=== PATIENT | female | born 1960 | race Caucasian/White ===

== ENCOUNTER 2016-06-04 11:16 | Emergency (ER) | payer BC ==
--- NOTE | ~2016-06-04 | CT71 ---
[facility] A Service of [facility] / [facility] RADIOLOGY TEXT RESULTS PATIENT: CELESTE LOVELL LOCATION: SED : 58 UNIT #: [id number] AGE: [address]: RICK REGAN SEX: F ORDER DR: [id number] [place] [id number] MR#: [id number] Acc #: [id number] NAME: CELESTE LOVELL : 1960 SEX: F STUDY DATE/TIME: 06/04/2016 10:51 UNIT: SED ROOM: STUDY DESCRIPTION: CT Head Wo Contrast Attending Physician: Rick Regan Referring Physician: Rick Regan Ordering Physician: Oniel Richards M.D. Primary Care Physician: Ange Durham MEDICAL IMAGING REPORT This report is preliminary unless electronic signature is present. EXAM CT of the head without contrast INDICATION Dizziness and headache for 3 days. This is located on the right side. Patient also has hyperglycemia. TECHNIQUE Axial CT images were obtained from the vertex of the skull through the skull base. No intravenous contrast was administered. This CT exam was performed with one or more of the following radiation dose reduction techniques: automatic exposure control, adjustment of mA and/or kV according to patient size, and iterative reconstruction. FINDINGS No acute intracranial hemorrhage is identified. Brain parenchyma is normal in attenuation with no focal areas of decreased attenuation seen. There is no midline shift or mass effect. The ventricles are normal in size. Patient is noted have a mucous retention cyst within the left maxillary sinus. The remainder of the visualized paranasal sinuses and mastoid air cells appear clear. No aggressive osseous abnormalities are seen and there are no focal soft tissue abnormalities. IMPRESSION 1. No acute intracranial process is identified. Specifically, there is no evidence of acute hemorrhage, mass lesion or acute infarct. 2. Left maxillary sinus mucous retention cyst Dictated by... Madyson Peña M.D. [facility] A Service of [facility] / [facility] RADIOLOGY TEXT RESULTS PATIENT: CELESTE LOVELL LOCATION: SED : 58 UNIT #: [id number] AGE: [address]: RICK REGAN SEX: F ORDER DR: THIS IS AN ELECTRONICALLY VERIFIED REPORT Madyson Peña M.D. at 06/04/2016 6:30 PM DAT/alexander TD: 06/04/2016 13:04 JOB #: [id number] MEDICAL IMAGING REPORT Page 1 of 1
--- NOTE | ~2016-06-04 | EKG ---
PATIENT: CELESTE LOVELL UNIT #: [id number] Ventricular Rate: 79 BPM Atrial Rate: 79 BPM P-R Interval: 146 ms QRS Duration: 88 ms Q-T Interval: 400 ms QTC Calculation(Bezet): 458 ms P [place]: 38 degrees Calculated R [place]: 20 degrees Calculated T [place]: 26 degrees Diagnosis Line: Normal sinus rhythm Diagnosis Line: Normal ECG Diagnosis Line: No previous ECGs available Diagnosis Line: Confirmed by JIMMY WHITMAN MD ([id number]) on 06/10/2016 Diagnosis Line: 7:59:04 PM INTERPRETING MD: ANTONETTE CASAS
[2016-06-04 10:59] LABS: URINE SOURCE CLEAN CATCH
[2016-06-04 11:04] LABS: URINE APPEARANCE CLEAR; URINE BILIRUBIN NEG (NEG); URINE BLOOD TRACE-INTACT (NEG); URINE COLOR YELLOW; URINE GLUCOSE 50 MG/DL (NORM); URINE KETONE NEG (NEG); URINE LEUKOCYTE ESTERASE NEG (NEG); URINE NITRATE NEG (NEG); URINE PROTEIN NEG (NEG); URINE UROBILINOGEN 0.2 MG/DL (NORM)
[2016-06-04 11:06] LABS: MICRO INDICATED? YES
[2016-06-04 11:06] LABS: POC - CKMB 2.5 ng/mL (0.0-7.9); POC - TROPONIN <0.05 ng/mL (<=0.05)
[2016-06-04 11:08] LABS: HEMOGLOBIN 13.3 gm/dL (12.0-16.0); MEAN PLATELET VOLUME 9.5 FL (6.5-11.5); MONOCYTE# 0.6 X10e3 (0-1.0); WHITE BLOOD COUNT 8.6 X10e3 (4.0-10.5)
[~2016-06-04 11:16] MED LIST: ASPIRIN81 M2 PO; BUSPAR15 MG PO; BUSPAR30 MG PO; CLEOCIN; DAKIN'S MODIF1000 ML EXT; DOXYCYCLINE HY100 M3 PO; KEFLEX500 MG PO; LANTUS SOL100 UNIT/1 SUBQ; LANTUS100 UNITS/ SQ; LEVOTHROID112 MCG PO; LIPITOR20 MG PO; LIPITOR40 MG PO; LORTAB 10-5001 EACH PO; MACROBID100 M1 PO; METFORMIN HCL1000 M1 PO; METFORMIN PO; NORVASC10 MG PO; PYRIDIUM PO; SYNTHROID PO; TOUJEO SOL300 UNIT/1 SQ; ZESTRIL40 MG PO
[2016-06-04 11:21] LABS: BASOPHIL# 0.1 X10e3 (0-0.3); BASOPHIL% 1.1 % (0-2.5); EOSINOPHIL# 0.3 X10e3 (0-0.7); EOSINOPHIL% 3.1 % (0.0-7.0); LYMPHOCYTE# 3.4 X10e3 (1.0-3.5); LYMPHOCYTE% 39.3 % (17.0-45.0); MEAN CELL VOLUME 87.5 FL (83-96); MEAN CORPUSCULAR HEMOGLOBIN 28.3 PG (28-34); MEAN CORPUSCULAR HGB CONC 32.3 g/dL (30-36); MONOCYTE% 6.4 % (3.0-12.0); NEUTROPHIL# 4.3 X10e3 (1.5-7.1); NEUTROPHIL% 50.1 % (40-75); PLATELET COUNT 230 X10e3 (140-420); RED BLOOD COUNT 4.68 X10e (3.90-5.30); RED CELL DISTRIBUTION WIDTH 14.7 % (11.0-15.5)
[2016-06-04 11:31] LABS: DIFF IND NO
[2016-06-04 11:35] LABS: CULTURE INDICATED? YES; URINE BACTERIA 1+ (NEG); URINE SQUAMOUS EPITHELIAL CELL FEW /[HPF]
[2016-06-04 11:36] LABS: URINE GRANULAR CAST 0-2 /[HPF]; URINE HYALINE CAST 0-2 /[HPF]; URINE MUCUS PRESENT
[2016-06-04 11:41] LABS: ALBUMIN SERUM 4.1 g/dL (3.5-5.0); BILIRUBIN,TOTAL 0.5 mg/dL (0.2-2.0); BUN/CREATININE RATIO 16.25; CALCIUM SERUM 9.1 mg/dL (8.4-10.2); CREATININE SERUM 0.8 mg/dL (0.6-1.4); GLOM FILT RATE Estimated 82.5 mL/min (>60); POTASSIUM 4.1 mmol/L (3.5-5.1); PROTEIN TOTAL SERUM 7.4 g/dL (6.0-8.3)
== END 2016-06-04 16:01 | disposition home or self-care (01) ==
LOC: SED 11:16
PROVIDERS: Emergency Medicine; Nurse Practitioner
DX: E11.65 Type 2 diabetes mellitus with hyperglycemia (principal); R51 Headache; I10 Essential (primary) hypertension; E03.9 Hypothyroidism, unspecified; F41.9 Anxiety disorder, unspecified; Z88.0 Allergy status to penicillin; Z88.2 Allergy status to sulfonamides; Z90.710 Acquired absence of both cervix and uterus; Z79.899 Other long term (current) drug therapy; Z79.4 Long term (current) use of insulin
CPT/HCPCS: 36415; 70450; 80053; 81003; 82010; 82553; 82947; 83874; 84484; 85025; 87086; 93005; 96361; 96365; 96375; 99284; J1885; J2270; J2405; J2765